=== PATIENT | male | born 1935 | race Hispanic/Latino ===

== ENCOUNTER 2016-09-13 14:46 | Inpatient (IN) | payer MEDICARE, BC ==
--- NOTE | 2016-09-13 20:24 | CP.PCM.HP ---
History of Present Illness - History of Present Illness History of Present Illness: CC: post op rehab after L knee replacement HPI: This is an 81 y/o male with hypothyroidism who presents from [facility] for post-op rehab after L knee replacement on 09/13. Patient has no acute c/c at this time. Patient denies CP, SOB, v, d, dysuria. c/o some mild nausea. Pain is controlled. Patient noted to have fever of 101 on admission. 14 point ROS negative other than HPI MHx: Hypothyroid, depression SHx: Cataracts Allergies: petrolatum, shrimp Medications: as per med list, but patient not taking divalproex or meloxicam actively Family Hx: Reviewed, no relevant findings Social Hx: Lives with family, no EtOH, no tobacco Surrogate: daughter, Tequila Guerrero Present on Admission - Present on Admission Any Indicators Present on Admission: No Meds Allergies/Adverse Reactions: Allergies Allergy/AdvReac Type Severity Reaction Status Date / Time shrimp Allergy ITCHING Verified 09/13/16 21:00 cooton wound dressing Allergy ITCHING Uncoded 09/13/16 21:01 petrulatum Allergy RASH Uncoded 09/13/16 20:58 Physical Exam - Constitutional Appears: No Acute Distress - Head Exam Head Exam: ATRAUMATIC, NORMOCEPHALIC - Eye Exam Eye Exam: EOMI, PERRL - ENT Exam ENT Exam: Mucous Membranes Moist - Neck Exam Neck exam: Positive for: Full Rom - Respiratory Exam Respiratory Exam: Clear to Auscultation Bilateral, NORMAL BREATHING PATTERN - Cardiovascular Exam Cardiovascular Exam: REGULAR RHYTHM, +S1, +S2 - GI/Abdominal Exam GI & Abdominal Exam: Normal Bowel Sounds, Soft - Extremities Exam Additional comments: LLE in dressing with brace - Neurological Exam Neurological exam: Alert, CN II-XII Intact, Oriented x3 - Psychiatric Exam Psychiatric exam: Normal Affect, Normal Mood - Skin Skin Exam: Dry, Warm Assessment & Plan (1) S/P TKR (total knee replacement) Assessment and Plan: 81 y/o male here for rehab s/p L TKR. Also with fever earlier. 1) s/p TKR -Pain mgmt per scale -Rehab PT consult in AM 2) Fever -- likely atelectasis, but r/o infection -BCx, UA/UCx -CXR -Tylenol for fever 3) Hypothyroid -- continue synthroid 4) DVT PPx -- lovenox 30 sq q12h per discharge order from [facility] Status: Acute (2) Hypothyroid Status: Acute (3) Fever Status: Acute (4) DVT prophylaxis Status: Acute
[2016-09-13 20:26] VITALS: BMI 29.5
[2016-09-13] MEDS ORDERED: Oxycodone/Acetaminophen 5/325 mg Tab PO PRN (21:07)
[2016-09-13 22:23] LABS: BASO % 0.2 % (0.0-2.0); EOS % 0.8 % (0.0-4.0); HEMATOCRIT 28.1 % (35.0-51.0); LYMPH # 0.6 K/uL (1.0-4.3); LYMPH % 10.2 % (20.0-40.0); MEAN CELL VOLUME 95.3 fl (80.0-94.0); MEAN CORPUSCULAR HEMOGLOBIN 31.4 pg (27.0-31.0); MEAN PLATELET VOLUME 10.8 fl (7.2-11.7); MONO # 0.7 K/uL (0.0-0.8); MONO % 11.8 % (0.0-10.0); NEUT # 4.7 K/uL (1.8-7.0); RED CELL DISTRIBUTION WIDTH 13.9 % (11.5-14.5); WHITE BLOOD COUNT 6.1 K/uL (4.8-10.8)
[2016-09-13 22:25] LABS: BLOOD UREA NITROGEN 18 mg/dl (9-20); CALCIUM 8.4 mg/dL (8.4-10.2); CARBON DIOXIDE 26 mmol/L (22-30); CHLORIDE 101 mmol/L (98-107); GFR AFRICAN-AMERICAN > 60; GLUCOSE,RANDOM 124 mg/dL (75-110); SODIUM 134 mmol/l (132-148)
[2016-09-13] MEDS: Docusate-Senna 50 mg-8.6 mg Tab PO SCH ×2 (23:50→23:56)
[2016-09-13] MEDS: Enoxaparin 30 mg Syringe SC SCH (23:50)
[2016-09-14 03:41] LABS: RBC URINE < 1 /hpf (0-3); URINE BACTERIA RARE (<OCC); URINE BILIRUBIN NEGATIVE (NEGATIVE); URINE BLOOD SMALL (NEGATIVE); URINE COLOR YELLOW (YELLOW); URINE GLUCOSE (UA) NEG (Normal); URINE KETONE NEGATIVE (NEGATIVE); URINE LEUKOCYTE ESTERASE NEG Leu/uL (Negative); URINE PROTEIN NEGATIVE (NEGATIVE); WBC URINE 1 /hpf (0-5)
[2016-09-14] MEDS: Levothyroxine 25 MCG TAB PO SCH (06:41)
[2016-09-14] MEDS: Pantoprazole 40 mg EC Tab PO SCH (08:28)
[2016-09-14] MEDS: Enoxaparin 30 mg Syringe SC SCH ×2 (08:28→21:04)
[2016-09-14] MEDS ORDERED: Oxycodone/Acetaminophen 5/325 mg Tab PO PRN (11:25)
[2016-09-14] MEDS ORDERED: Alum-Mag Hydrox-Simethicone Susp (30 mL) PO STA (15:34)
[2016-09-14] MEDS: Docusate-Senna 50 mg-8.6 mg Tab PO SCH ×2 (21:04→21:07)
--- NOTE | 2016-09-14 21:35 | CP.PCM.CON ---
History of Present Illness - History of Present Illness History of Present Illness: patient is a 81 year old male admitted to acute rehab from [facility] who had osteoarthritis of the knee and underwent a left knee replacement By Dr. Shields. Review of Systems - Musculoskeletal Musculoskeletal: Abnormal Gait, Arthralgias, Limited Range of Motion, Muscle Weakness Past Patient History - Past Medical History & Family History Past Medical History?: Yes - Past Social History Smoking Status: Never Smoked - PULMONARY Hx Sleep Apnea: Yes (recently, no cpap machine) - ENDOCRINE/METABOLIC Hx Hypothyroidism: Yes - HEMATOLOGICAL/ONCOLOGICAL Hx AIDS: No Hx Human Immunodeficiency Virus (HIV): No - MUSCULOSKELETAL/RHEUMATOLOGICAL Hx Falls: No Hx Osteoarthritis: Yes (> 3 years) - GASTROINTESTINAL Hx Gastritis: Yes - PSYCHIATRIC Hx Substance Use: No - SURGICAL HISTORY Other/Comment: h/o cataract surgery. s/p left TKR 09/11/2016 - ANESTHESIA Hx Anesthesia: Yes Hx Anesthesia Reactions: No Hx Malignant Hyperthermia: No Has any member of the family had a problem w/ anesthesia?: No Meds Allergies/Adverse Reactions: Allergies Allergy/AdvReac Type Severity Reaction Status Date / Time shrimp Allergy ITCHING Verified 09/13/16 21:00 cotton dressings Allergy ITCHING Uncoded 09/13/16 22:42 petrulatum Allergy RASH Uncoded 09/13/16 20:58 - Medications Medications: Current Medications Acetaminophen (Tylenol 325mg Tab) 650 mg PO Q6 PRN PRN Reason: Pain, Mild (1-3) Last Admin: 09/13/16 23:49 Dose: 650 mg Acetaminophen (Tylenol 325mg Tab) 650 mg PO Q6 PRN PRN Reason: Fever >100.4 F Enoxaparin Sodium (Lovenox) 30 mg SC Q12 [facility] PRN Reason: Protocol Last Admin: 09/14/16 21:04 Dose: 30 mg Levothyroxine Sodium (Synthroid) 25 mcg PO DAILY@0700 [facility] Last Admin: 09/14/16 06:41 Dose: 25 mcg Ondansetron HCl (Zofran Tab) 4 mg PO Q6 PRN PRN Reason: Nausea/Vomiting Oxycodone/Acetaminophen (Percocet 5/325 Mg Tab) 1 tab PO Q4 PRN PRN Reason: Pain, moderate (4-7) Stop: 09/16/16 21:08 Oxycodone/Acetaminophen (Percocet 5/325 Mg Tab) 2 tab PO Q4 PRN PRN Reason: Pain, severe (8-10) Stop: 09/17/16 11:26 Pantoprazole Sodium (Protonix Ec Tab) 40 mg PO DAILY [facility] Last Admin: 09/14/16 08:28 Dose: 40 mg Senna/Docusate Sodium (Senokot S 50 Mg-8.6 Mg) 1 tab PO HS [facility] Last Admin: 09/14/16 21:07 Dose: Not Given Physical Exam - Head Exam Head Exam: ATRAUMATIC, NORMAL INSPECTION, NORMOCEPHALIC - Eye Exam Eye Exam: EOMI, Normal appearance Pupil Exam: NORMAL ACCOMODATION - ENT Exam ENT Exam: Mucous Membranes Moist, Normal Exam - Neck Exam Neck exam: Positive for: Normal Inspection - Respiratory Exam Respiratory Exam: Clear to Auscultation Bilateral - Cardiovascular Exam Cardiovascular Exam: REGULAR RHYTHM - GI/Abdominal Exam GI & Abdominal Exam: Normal Bowel Sounds - Rectal Exam Rectal Exam: NORMAL INSPECTION - Extremities Exam Additional comments: left knee with dressing and ricardo wrap. no calf tenderness full strength and Rom of other 3 extremeties at present limited range of motion and strength of left leg - Back Exam Back exam: NORMAL INSPECTION - Neurological Exam Neurological exam: Alert, CN II-XII Intact, Reflexes Normal - Psychiatric Exam Psychiatric exam: Normal Affect - Skin Skin Exam: Normal Color Results - Vital Signs Recent Vital Signs: Last Vital Signs Temp 97.2 F L 09/14/16 20:31 Pulse 90 09/14/16 20:31 Resp 20 09/14/16 20:31 BP 112/66 09/14/16 20:31 Pulse Ox 98 09/14/16 20:31 - Labs Result Diagrams: 09/13/16 21:05 09/13/16 21:05 Labs: Laboratory Results - last 24 hr 09/13/16 09/13/16 09/13/16 03:30 21:05 21:05 WBC 6.1 RBC 2.95 L Hgb 9.3 L Hct 28.1 L MCV 95.3 H MCH 31.4 H MCHC 33.0 RDW 13.9 Plt Count 85 L MPV 10.8 Neut % (Auto) 77.0 H Lymph % (Auto) 10.2 L [place] % (Auto) 11.8 H Eos % (Auto) 0.8 Baso % (Auto) 0.2 Neut # 4.7 Lymph # 0.6 L [place] # 0.7 Eos # 0.0 Baso # 0.0 Sodium 134 Potassium 4.0 Chloride 101 Carbon Dioxide 26 Anion Gap 11 BUN 18 Creatinine 1.1 Est GFR ( Amer) > 60 Est GFR (Non-Af Amer) > 60 Random Glucose 124 H Calcium 8.4 Urine Color Yellow Urine Clarity Clear Urine pH 6.0 Ur Specific [place] 1.012 Urine Protein Negative Urine Glucose (UA) Neg Urine Ketones Negative Urine Blood Small Urine Nitrate Negative Urine Bilirubin Negative Urine Urobilinogen 2.0 Ur Leukocyte Esterase Neg Urine RBC (Auto) < 1 Urine Microscopic WBC 1 Urine Bacteria Rare Assessment & Plan (1) DVT prophylaxis Status: Acute (2) Fever Status: Acute (3) Hypothyroid Status: Acute (4) S/P TKR (total knee replacement) Assessment and Plan: plan for physical and occupational therapy. written overall plan of care. Rom, strengthing, transfers and gait training. Dr Shields instructions to follow for dressing and further treament. Monitor temp and wait for chest xray and UA and labs Plan for Dc Home, [place]olas for modified independent Status: Acute
[2016-09-15] MEDS: Levothyroxine 25 MCG TAB PO SCH (06:07)
[2016-09-15] MEDS: Pantoprazole 40 mg EC Tab PO SCH (08:27)
[2016-09-15] MEDS: Enoxaparin 30 mg Syringe SC SCH (08:27)
--- NOTE | 2016-09-15 09:08 | RAD ---
PROCEDURE: CHEST RADIOGRAPH, 1 VIEW HISTORY: fever COMPARISON: None available. FINDINGS: LUNGS: 5 millimeter nodular density in the left upper lobe.. PLEURA: No pneumothorax or pleural fluid seen. CARDIOVASCULAR: Normal. OSSEOUS STRUCTURES: No significant abnormalities. VISUALIZED UPPER ABDOMEN: Normal. OTHER FINDINGS: None. IMPRESSION: 5 millimeter nodule in the left upper lobe.
--- NOTE | 2016-09-15 09:23 | CP.PCM.PN ---
Subjective - Date & Time of Evaluation Date of Evaluation: 09/15/16 Time of Evaluation: 08:00 - Subjective Subjective: no acute complaints at present Objective - Vital Signs/Intake and Output Vital Signs (last 24 hours): Temp Pulse Resp BP Pulse Ox 98.2 F 78 20 117/63 99 09/15/16 07:54 09/15/16 07:54 09/15/16 07:54 09/15/16 07:54 09/15/16 07:54 - Medications Medications: Current Medications Acetaminophen (Tylenol 325mg Tab) 650 mg PO Q6 PRN PRN Reason: Pain, Mild (1-3) Last Admin: 09/13/16 23:49 Dose: 650 mg Acetaminophen (Tylenol 325mg Tab) 650 mg PO Q6 PRN PRN Reason: Fever >100.4 F Enoxaparin Sodium (Lovenox) 30 mg SC Q12 [facility] PRN Reason: Protocol Last Admin: 09/15/16 08:27 Dose: 30 mg Levothyroxine Sodium (Synthroid) 25 mcg PO DAILY@0700 [facility] Last Admin: 09/15/16 06:07 Dose: 25 mcg Ondansetron HCl (Zofran Tab) 4 mg PO Q6 PRN PRN Reason: Nausea/Vomiting Oxycodone/Acetaminophen (Percocet 5/325 Mg Tab) 1 tab PO Q4 PRN PRN Reason: Pain, moderate (4-7) Stop: 09/16/16 21:08 Oxycodone/Acetaminophen (Percocet 5/325 Mg Tab) 2 tab PO Q4 PRN PRN Reason: Pain, severe (8-10) Stop: 09/17/16 11:26 Pantoprazole Sodium (Protonix Ec Tab) 40 mg PO DAILY [facility] Last Admin: 09/15/16 08:27 Dose: 40 mg Senna/Docusate Sodium (Senokot S 50 Mg-8.6 Mg) 1 tab PO HS [facility] Last Admin: 09/14/16 21:07 Dose: Not Given - Labs Labs: 09/13/16 21:05 09/13/16 21:05 - Head Exam Head Exam: ATRAUMATIC, NORMAL INSPECTION, NORMOCEPHALIC - Eye Exam Pupil Exam: NORMAL ACCOMODATION, PERRL - ENT Exam ENT Exam: Mucous Membranes Moist, Normal Exam - Respiratory Exam Respiratory Exam: NORMAL BREATHING PATTERN - Cardiovascular Exam Cardiovascular Exam: REGULAR RHYTHM - GI/Abdominal Exam GI & Abdominal Exam: Normal Bowel Sounds - Rectal Exam Rectal Exam: NORMAL INSPECTION - Exam External exam: NORMAL EXTERNAL EXAM - Back Exam Back Exam: NORMAL INSPECTION - Neurological Exam Neurological Exam: Alert, Awake Neuro motor strength exam: Left Upper Extremity: 4, Right Upper Extremity: 4, Left Lower Extremity: 3, Right Lower Extremity: 4 - Psychiatric Exam Psychiatric exam: Normal Affect, Normal Mood - Skin Skin Exam: Dry Assessment and Plan (1) DVT prophylaxis Status: Acute (2) Fever Status: Acute (3) Hypothyroid Status: Acute (4) S/P TKR (total knee replacement) Assessment & Plan: plan for acute rehab, physical, occupational and rec therapy Monitor skin incisional internet site designer temp, and vitals Status: Acute Physiatry Overall Plan of Care - Overall Plan of Care Estimated Length of Stay in Weeks: 2 (weeks) Rehab Impairment: Mobility, Gait, Balance, Coordination Etiologic Diagnosis: Hip/Knee Surgery Rehab/Medical Prognosis: Fair - Anticipated Interventions Physical Therapy:: Yes Occupational Therapy:: Yes Recreational Therapy:: Yes - Therapy Goals Bed Mobility: Independent Ambulation: Independent Functional Positional Changes:: Independent - Functional Outcomes Functional Outcomes: good - Discharge Plan Discharge Destination: Home
[2016-09-15] MEDS: Alum-Mag Hydrox-Simethicone Susp (30 mL) PO PRN (18:37)
[2016-09-15] MEDS: Docusate-Senna 50 mg-8.6 mg Tab PO SCH (21:15)
[2016-09-16] MEDS: Levothyroxine 25 MCG TAB PO SCH (06:30)
[2016-09-16 06:52] LABS: HEMATOCRIT 23.8 % (35.0-51.0); MEAN CELL VOLUME 95.4 fl (80.0-94.0); MEAN CORPUSCULAR HEMOGLOBIN 31.8 pg (27.0-31.0); MEAN CORPUSCULAR HGB CONC 33.4 g/dL (33.0-37.0); RED CELL DISTRIBUTION WIDTH 13.9 % (11.5-14.5); WHITE BLOOD COUNT 4.3 K/uL (4.8-10.8)
[2016-09-16] MEDS: Enoxaparin 30 mg Syringe SC SCH (08:56)
[2016-09-16] MEDS: PREVACID 15 MG PO SCH (08:58)
--- NOTE | 2016-09-16 12:11 | CP.PCM.PN ---
Subjective - Date & Time of Evaluation Date of Evaluation: 09/16/16 Time of Evaluation: 17:45 - Subjective Subjective: Patient seen and examined bedside. Pain to right knee is controlled. With fever Tmax 101.5 today , WBC 4.3 Hgb 7.9 Complaining of epigastric discomfort especially after eating . States that has had this problem for almost 25 years , has been diagnosed with gastritis , H. Pylori, gastric ulcer has had EGD and is on Prevacid at home Has chronic constipation with BM every 3 days Complains that does not like food, does not have appetite. Recently diagnosed with Hypyothyroidsm and started on Synthroid Refusing to take tylenol for fever and Venofer for anemia of acute blood loss. Explained top patient need for such treatments Objective - Vital Signs/Intake and Output Vital Signs (last 24 hours): Temp Pulse Resp BP Pulse Ox 98.1 F 76 20 142/72 98 09/16/16 08:43 09/16/16 08:43 09/16/16 08:43 09/16/16 08:43 09/16/16 08:43 - Medications Medications: Current Medications Acetaminophen (Tylenol 325mg Tab) 650 mg PO Q6 PRN PRN Reason: Pain, Mild (1-3) Last Admin: 09/13/16 23:49 Dose: 650 mg Acetaminophen (Tylenol 325mg Tab) 650 mg PO Q6 PRN PRN Reason: Fever >100.4 F Al Hydrox/Mg Hydrox/Simethicone (Maalox Plus 30 Ml) 30 ml PO Q4 PRN PRN Reason: Indigestion / Heartburn Last Admin: 09/15/16 18:37 Dose: 30 ml Enoxaparin Sodium (Lovenox) 30 mg SC DAILY [facility] PRN Reason: Protocol Last Admin: 09/16/16 08:56 Dose: 30 mg Home Med (Patient's Own Medication) 1 unit PO DAILY [facility] Last Admin: 09/16/16 08:58 Dose: 1 unit Levothyroxine Sodium (Synthroid) 25 mcg PO DAILY@0700 [facility] Last Admin: 09/16/16 06:30 Dose: 25 mcg Ondansetron HCl (Zofran Tab) 4 mg PO Q6 PRN PRN Reason: Nausea/Vomiting Oxycodone/Acetaminophen (Percocet 5/325 Mg Tab) 1 tab PO Q4 PRN PRN Reason: Pain, moderate (4-7) Stop: 09/16/16 21:08 Oxycodone/Acetaminophen (Percocet 5/325 Mg Tab) 2 tab PO Q4 PRN PRN Reason: Pain, severe (8-10) Stop: 09/17/16 11:26 Senna/Docusate Sodium (Senokot S 50 Mg-8.6 Mg) 1 tab PO HS [facility] Last Admin: 09/15/16 21:15 Dose: Not Given - Labs Labs: 09/16/16 06:15 09/13/16 21:05 - Constitutional Appears: Non-toxic, No Acute Distress - Head Exam Head Exam: ATRAUMATIC, NORMAL INSPECTION, NORMOCEPHALIC - Eye Exam Eye Exam: EOMI, Normal appearance, PERRL Pupil Exam: NORMAL ACCOMODATION - ENT Exam ENT Exam: Mucous Membranes Moist, Normal Exam - Neck Exam Neck Exam: Full ROM, Normal Inspection - Respiratory Exam Respiratory Exam: Clear to Ausculation Bilateral, NORMAL BREATHING PATTERN. absent: Rales, Rhonchi, Wheezes - Cardiovascular Exam Cardiovascular Exam: REGULAR RHYTHM, RRR, +S1, +S2. absent: JVD - GI/Abdominal Exam GI & Abdominal Exam: Soft, Normal Bowel Sounds. absent: Distended, Guarding, Tenderness, Rebound - Rectal Exam Rectal Exam: Deferred - Extremities Exam Additional comments: right knee surgical incision heaking well with surrounding erythema Edema to RLE 2 + pulses intact no calf tenderness - Back Exam Back Exam: NORMAL INSPECTION - Neurological Exam Neurological Exam: Alert, Awake, CN II-XII Intact, Oriented x3 - Psychiatric Exam Psychiatric exam: Normal Affect, Normal Mood - Skin Skin Exam: Dry, Normal Color, Warm Assessment and Plan - Assessment and Plan (Free Text) Assessment: 81 y/o male with PMH OA s/p right TKR , hypothyroidism , chronic constipation, historuy of depression in the past , chronic gastritis , history H.Pylori and gastric ulcer ,sent to acute rehab for physical therapy after TKR surgery 09/[address] Shields Complaining of epigastric discomfort and has been having fever 1.Osteoarthritis S/P right TKR (total knee replacement) Continue PT/OT DVt prophylaxis withlovenox 30 mg as per ortho Ortho follow up with Dr. Shields pain management. Patient refusing narcotics. 2.Post op fever unclear etiology Blood and urine cultures sent 09/14 with no growth CXR showed no infiltrate, left high diaphragm UStart incentive spiroimetryu Venous doppler of RLE stat Tylenol for fever 3.Hypothyroid continue synthroid 4. Acute blood loss anemia Hgb dropped tyo 7.9 today Start Venofer IV Repeat CBC in AM 5. Gastritis on Prevacid and Maalox 6. Chronic constipation Colace BID 7. DVT PPx lovenox 30
[2016-09-16] MEDS: Alum-Mag Hydrox-Simethicone Susp (30 mL) PO PRN (12:42)
[2016-09-16] MEDS: Docusate-Senna 50 mg-8.6 mg Tab PO SCH (21:47)
[2016-09-17] MEDS: Levothyroxine 25 MCG TAB PO SCH (06:46)
[2016-09-17 07:54] LABS: HEMATOCRIT 21.7 % (35.0-51.0); MEAN CELL VOLUME 94.1 fl (80.0-94.0); MEAN CORPUSCULAR HEMOGLOBIN 32.8 pg (27.0-31.0); MEAN CORPUSCULAR HGB CONC 34.9 g/dL (33.0-37.0); RED CELL DISTRIBUTION WIDTH 13.7 % (11.5-14.5); WHITE BLOOD COUNT 4.3 K/uL (4.8-10.8)
[2016-09-17] MEDS: Enoxaparin 30 mg Syringe SC SCH (08:42)
[2016-09-17] MEDS: PREVACID 15 MG PO SCH (08:42)
--- NOTE | 2016-09-17 11:11 | RAD ---
PROCEDURE: CHEST RADIOGRAPH, 1 VIEW HISTORY: post op fever COMPARISON: 09/14/2016 FINDINGS: LUNGS: Clear. PLEURA: No pneumothorax or pleural fluid seen. CARDIOVASCULAR: Normal. OSSEOUS STRUCTURES: No significant abnormalities. VISUALIZED UPPER ABDOMEN: Normal. OTHER FINDINGS: None. IMPRESSION: No active disease.
--- NOTE | 2016-09-17 13:15 | US ---
PROCEDURE: Right lower extremity venous duplex Doppler. HISTORY: r/o DVT COMPARISON: None available. TECHNIQUE: Common femoral, superficial femoral, popliteal and posterior tibial veins were evaluated. Flow was assessed with color Doppler, compressibility, assessment of phasic flow and augmentation response. FINDINGS: COMMON FEMORAL VEIN: Unremarkable. SUPERFICIAL FEMORAL VEIN: Unremarkable. POPLITEAL VEIN: Unremarkable. POSTERIOR TIBIAL VEIN: Unremarkable. OTHER FINDINGS: None. IMPRESSION: No evidence of deep venous thrombosis in the right lower extremity.
--- NOTE | 2016-09-17 13:23 | US ---
PROCEDURE: Duplex ultrasound of the right lower extremity arteries. HISTORY: r/o PAD COMPARISON: None available. TECHNIQUE: Grayscale and duplex Doppler evaluation of the right common femoral, superficial femoral, popliteal, posterior tibial and dorsalis pedis arteries was performed.. FINDINGS: COMMON FEMORAL ARTERY: Patent. Maximal flow velocity of 87.2 cm/s. Triphasic pattern SUPERFICIAL FEMORAL ARTERY:Patent. Maximal flow velocity of 115.4 cm/s. Triphasic pattern POPLITEAL ARTERY:Patent. Maximal flow velocity of 57.4 cm/s. Triphasic pattern POSTERIOR TIBIAL ARTERY: Patent. Maximal flow velocity of 91.0 cm/s. Biphasic pattern DORSALIS PEDIS ARTERY: Patent. Maximal flow velocity of 32.2 cm/s. Biphasic pattern OTHER FINDINGS: None. IMPRESSION: Normal Duplex Doppler of the right lower extremity artery from the groin to the knee. Runoff below the right knee is biphasic in and all vessels which remain patent but exhibit mild arterial disease nevertheless.
[2016-09-17] MEDS: Docusate-Senna 50 mg-8.6 mg Tab PO SCH (22:19)
[2016-09-18] MEDS: Levothyroxine 25 MCG TAB PO SCH (06:48)
[2016-09-18 07:31] LABS: BASO % 0.7 % (0.0-2.0); EOS # 0.2 K/uL (0.0-0.7); EOS % 5.7 % (0.0-4.0); HEMATOCRIT 22.1 % (35.0-51.0); LYMPH # 0.5 K/uL (1.0-4.3); LYMPH % 12.4 % (20.0-40.0); MEAN CELL VOLUME 95.6 fl (80.0-94.0); MEAN CORPUSCULAR HEMOGLOBIN 32.1 pg (27.0-31.0); MEAN CORPUSCULAR HGB CONC 33.6 g/dL (33.0-37.0); MEAN PLATELET VOLUME 9.7 fl (7.2-11.7); MONO # 0.6 K/uL (0.0-0.8); MONO % 14.7 % (0.0-10.0); NEUT # 2.8 K/uL (1.8-7.0); NEUT % 66.5 % (50.0-75.0); NRBC % 0.1 % (0.0-0.0); RED CELL DISTRIBUTION WIDTH 13.8 % (11.5-14.5); WHITE BLOOD COUNT 4.2 K/uL (4.8-10.8)
[2016-09-18] MEDS: PREVACID 15 MG PO SCH (08:54)
--- NOTE | 2016-09-18 12:32 | PSY.TMCNF ---
Nursing - Vital Signs Vital Signs (Last 8 hours): Vital Signs 09/18/16 09/18/16 08:28 09:00 Temperature 97.9 F 97.9 F Pulse Rate 90 90 Respiratory 20 20 Rate Blood Pressure 125/70 125/70 O2 Sat by Pulse 98 Oximetry Pain: 0 - Precautions: Precautions: Fall Prevention - Medications/Other Issues Comment: Hgb 7.4 anemic - Consults Comment: Dr. Shields, Dr. Banks - Skin Incision Site: Left knee Dressing Status: Clean, Dry, Intact Incision: Healing Well Incision Line Treatment: Dry dressing. - Toileting Toileting: Modified Independent - Bladder Management Bladder Pattern: Normal Voiding Method: Toilet Bladder Management: Modified Independent - Bowel Management Bowel Pattern: Constipated Bowel Management: Modified Independent - Transfers Transfers: Modified Independent - ADL's ADL's: Modified Independent - Pain Management Comments: Denies pain - Patient/Family Teaching Comments: Safety - Goals/Time Frame Comments: As per IPOC Physical Therapy - Transfers Sit to Stand: Supervision, Verbal Cues - Ambulation Level of Assistance: Supervision, Verbal Cues, Contact Guard Distance (ft.): 100 Assistive Devices: Rolling Walker - Stair Negotiation Stairs: Level of Assistance: Not Tested - Standing Balance Static Stand: Contact Guard Assist Dynamic Stand: Minimal Assistance, Moderate Assistance - Pain Management Techniques: Ice, Position Change, Elevation - Insight/Carryover Insight/Carryover: Fair - Patient/Family Education Comment: -ongoing for adls, functional transfers/mobility, but additional training to improve carryover. -educated on energy conervation/work simplification strategies. -Pt's daughter needs reassurance re: pt's progress and need to complete task by lesli when possible - Assessment/Plan Assessment: Pt is engaged in independent leisure tasks throughout his stay on unit. Pt's main barrier to participation is limited arousal, fatigue, nausea, and pain. Pt prefers to rest or watch television during his free time. Pt's mood is stable-positive and has supportive daughter. Pt would benefit from participating in recreation therapy sessions if agreeable to distract pt from pain and improve arousal level. - Goals Timeframe: 1 week Goals: -CAREGIVER ED: Caregiver to be I assisting/cueing pt with daily living tasks prn. -LOWER BODY ADLS: Supervision/setup. -TOILETING: Mod I. - FUNCTIONAL TRANSFERS bed<->, commode, chaiir and other surfaces with Mod I with RW. -UPPER BODY ADLS: I AFTER SETUP. -GROOMING: standing @ sink with MoD I. - RETRIEVE/TRANSPORT ITEMS: Mod O - Provider Therapist: Freya Cope PT License Number: [id number] Occupational Therapy - Arousal/Attention/Orientation Patient Orientation: Person, Place, Time, Appropriate to Age, Appropriate to Situation - ADL/IADL Self Feeding: Set-up Help Grooming: Set-up Help Dressing-Upper Extremity: Supervision, Set-up Help Dressing-Lower Extremity: Moderate Assistance - Sitting Balance Static Sitting: Supervision Dynamic Sitting: Reaches within base of support - Transfers Wheelchair to Bed Transfers: Verbal Cues, Set-up Help, Contact Guard, Minimal Assistance Toilet Transfers: Supervision, Set-up Help Comment: chair transfers: Supervision with RW - Upper Extremity Status Right Upper Extremity Comment: AROM is WNLS Left Upper Extremity Comment: AROM is WNLS - Pain Alleviating Techniques: Ice, Position Change, Elevation - Insight/Carryover Insight/Carryover: Fair - Patient/Family Education Comment: -ongoing for adls, functional transfers/mobility, but additional training to improve carryover. -educated on energy conervation/work simplification strategies. -Pt's daughter needs reassurance re: pt's progress and need to complete task by lesli when possible - Assessment/Plan Assessment: Pt is engaged in independent leisure tasks throughout his stay on unit. Pt's main barrier to participation is limited arousal, fatigue, nausea, and pain. Pt prefers to rest or watch television during his free time. Pt's mood is stable-positive and has supportive daughter. Pt would benefit from participating in recreation therapy sessions if agreeable to distract pt from pain and improve arousal level. - Goals Timeframe: 1 week Goals: -CAREGIVER ED: Caregiver to be I assisting/cueing pt with daily living tasks prn. -LOWER BODY ADLS: Supervision/setup. -TOILETING: Mod I. - FUNCTIONAL TRANSFERS bed<->, commode, chaiir and other surfaces with Mod I with RW. -UPPER BODY ADLS: I AFTER SETUP. -GROOMING: standing @ sink with MoD I. - RETRIEVE/TRANSPORT ITEMS: Mod O - Provider Therapist: Lluvia Montoya, OTR/L License Number: [id number] Speech Therapy - Plan Assessment: Pt is engaged in independent leisure tasks throughout his stay on unit. Pt's main barrier to participation is limited arousal, fatigue, nausea, and pain. Pt prefers to rest or watch television during his free time. Pt's mood is stable-positive and has supportive daughter. Pt would benefit from participating in recreation therapy sessions if agreeable to distract pt from pain and improve arousal level. Recreational Therapy - Participation Participation: Monitors His/Her Own Leisure Time - Attendance Attendance: Daily - Activities Leisure Activities: Television - Socialization Level of Socialization: Initiates/interacts freely with care givers and peer - Diversional Time Diversional Time: television - Assessment Assessment/Plan: Pt is engaged in independent leisure tasks throughout his stay on unit. Pt's main barrier to participation is limited arousal, fatigue, nausea , and pain. Pt prefers to rest or watch television during his free time. Pt's mood is stable-positive and has supportive daughter. Pt would benefit from participating in recreation therapy sessions if agreeable to distract pt from pain and improve arousal level. Problems Currently Limiting Participation: pain, nausea, decrease leisure awareness level Goals and Time Frame: Pt will be encouraged to participate in 1:1 and group recreation therapy sessions 3-5x week to improve arousal level, attention to task, and leisure awareness level. - Provider Therapist: Audelia Domingo, [facility] #[id number] Nutrition - Current Diet Current Diet/ Supplement/ Feedings: regular diet ensure plus 8 ounces 2 per day( 700 kcal and 26 grams of protein) - Appetite Percent Meal Consumed: 50-74% - Comments Comments: Safety - Assessment/Goals/Time Frame Assessment/Goals/Time Frame: Hgb 7.4 anemic - Provider Provider: Stacia Solomon RD Case Management - Discharge Plan Discharge Plan: Home with significant other/family Rehabilitation Plan - Treatment Plan Treatment Plan: Physical Therapy, Occupational Therapy - Recommendation Recommendation: Physical Therapy, Occupational Therapy, Dietary, Patient/Family Education - Discharge Plan Discharge to: Home (Dc fridayio wound PT)
--- NOTE | 2016-09-18 18:01 | CP.PCM.PN ---
Subjective - Date & Time of Evaluation Date of Evaluation: 09/18/16 Time of Evaluation: 17:58 - Subjective Subjective: patient states he is tolerating physical therapy well HGB 7.4, refuses transfusion until he speaks with his surgeon awaiting decision, HD STABLE, ASYMPTOMATIC. Objective - Vital Signs/Intake and Output Vital Signs (last 24 hours): Temp Pulse Resp BP Pulse Ox 97.9 F 90 20 125/70 98 09/18/16 09:00 09/18/16 09:00 09/18/16 09:00 09/18/16 09:00 09/18/16 08:28 - Medications Medications: Current Medications Acetaminophen (Tylenol 325mg Tab) 650 mg PO Q6 PRN PRN Reason: Pain, Mild (1-3) Last Admin: 09/13/16 23:49 Dose: 650 mg Acetaminophen (Tylenol 325mg Tab) 650 mg PO Q6 PRN PRN Reason: Fever >100.4 F Al Hydrox/Mg Hydrox/Simethicone (Maalox Plus 30 Ml) 30 ml PO Q4 PRN PRN Reason: Indigestion / Heartburn Last Admin: 09/16/16 12:42 Dose: 30 ml Enoxaparin Sodium (Lovenox) 30 mg SC DAILY [facility] PRN Reason: Protocol Last Admin: 09/17/16 08:42 Dose: 30 mg Home Med (Patient's Own Medication) 1 unit PO DAILY [facility] Last Admin: 09/18/16 08:54 Dose: 1 unit Iron Sucrose 100 mg/ Sodium (Chloride) 105 mls @ 105 mls/hr IVPB 1999 [facility] Stop: 09/21/16 20:01 Last Admin: 09/17/16 20:22 Dose: 105 mls/hr Levothyroxine Sodium (Synthroid) 25 mcg PO DAILY@0700 [facility] Last Admin: 09/18/16 06:48 Dose: 25 mcg Ondansetron HCl (Zofran Tab) 4 mg PO Q6 PRN PRN Reason: Nausea/Vomiting Senna/Docusate Sodium (Senokot S 50 Mg-8.6 Mg) 1 tab PO [facility] Last Admin: 09/17/16 22:19 Dose: Not Given - Labs Labs: 09/18/16 05:40 09/13/16 21:05 - Constitutional Appears: Non-toxic, No Acute Distress - Head Exam Head Exam: ATRAUMATIC, NORMAL INSPECTION, NORMOCEPHALIC - Eye Exam Eye Exam: EOMI, Normal appearance, PERRL Pupil Exam: NORMAL ACCOMODATION, PERRL - ENT Exam ENT Exam: Mucous Membranes Moist, Normal Exam - Neck Exam Neck Exam: Full ROM, Normal Inspection. absent: Lymphadenopathy - Respiratory Exam Respiratory Exam: Clear to Ausculation Bilateral, NORMAL BREATHING PATTERN - Cardiovascular Exam Cardiovascular Exam: REGULAR RHYTHM, +S1, +S2. absent: Murmur - GI/Abdominal Exam GI & Abdominal Exam: Soft, Normal Bowel Sounds. absent: Tenderness - Extremities Exam Extremities Exam: Normal Capillary Refill. absent: Calf Tenderness - Back Exam Back Exam: absent: CVA tenderness (L), CVA tenderness (R) - Neurological Exam Neurological Exam: Alert, Awake, Oriented x3 - Psychiatric Exam Psychiatric exam: Normal Affect, Normal Mood - Skin Skin Exam: Dry, Intact, Normal Color, Warm Assessment and Plan - Assessment and Plan (Free Text) Plan: 81 y/o male with PMH OA s/p right TKR , hypothyroidism , chronic constipation, historuy of depression in the past , chronic gastritis , history H.Pylori and gastric ulcer ,sent to acute rehab for physical therapy after TKR surgery 09/[address] Shields Complaining of epigastric discomfort and has been having fever 1.Osteoarthritis S/P right TKR (total knee replacement) Continue PT/OT DVt prophylaxis withlovenox 30 mg as per ortho Ortho follow up with Dr. Shields pain management. Patient refusing narcotics. 2.Post op fever unclear etiology Blood and urine cultures sent 09/14 with no growth CXR showed no infiltrate, left high diaphragm UStart incentive spiroimetryu Venous doppler of RLE stat Tylenol for fever 3.Hypothyroid continue synthroid 4. Acute blood loss anemia Hgb dropped tyo 7.4 today Start Venofer IV Repeat CBC in AM PATIENT WILL MAKE DECISION REGARDIN GBLOOD TRANSFUSION AFTER SPEAKING WITH DR. SHIELDS. WILL LIKELY GET 2 UNITS TONIGHT. 5. Gastritis on Prevacid and Maalox 6. Chronic constipation Colace BID 7. DVT PPx lovenox 30
[2016-09-18] MEDS: Sodium Chloride 0.9% 1,000 ML IV SCH (19:04)
[2016-09-18] MEDS: Docusate-Senna 50 mg-8.6 mg Tab PO SCH (21:39)
[2016-09-19 06:16] LABS: HEMATOCRIT 22.7 % (35.0-51.0); MEAN CELL VOLUME 96.2 fl (80.0-94.0); MEAN CORPUSCULAR HEMOGLOBIN 31.9 pg (27.0-31.0); MEAN CORPUSCULAR HGB CONC 33.1 g/dL (33.0-37.0); RED CELL DISTRIBUTION WIDTH 14.1 % (11.5-14.5); WHITE BLOOD COUNT 5.3 K/uL (4.8-10.8)
[2016-09-19] MEDS: Levothyroxine 25 MCG TAB PO SCH (06:40)
[2016-09-19] MEDS: PREVACID 15 MG PO SCH (08:29)
[2016-09-19] MEDS: Sodium Chloride 0.9% 1,000 ML IV SCH (15:15)
--- NOTE | 2016-09-19 16:22 | US ---
HISTORY: r/o DVT . PRIORS: None. FINDINGS: 2-D, color and duplex Doppler analysis of the lower extremity venous circulation using routine protocol from the femoral veins through the popliteal veins. Venous compressibility: Normal. Flow and augmentation patterns: Normal. Visualized veins upper third of calf: Normal. Aguirre cyst: None. IMPRESSION: No sonographic or Doppler evidence for DVT in left lower extremity.
--- NOTE | 2016-09-19 20:46 | CP.PCM.PN ---
Subjective - Date & Time of Evaluation Date of Evaluation: 09/18/16 Time of Evaluation: 09:00 - Subjective Subjective: patient with no acute complaints of knee or leg pain Objective - Vital Signs/Intake and Output Vital Signs (last 24 hours): Temp Pulse Resp BP Pulse Ox 97.7 F 90 20 126/69 97 09/19/16 08:20 09/19/16 08:20 09/19/16 08:20 09/19/16 08:20 09/19/16 08:20 - Medications Medications: Current Medications Acetaminophen (Tylenol 325mg Tab) 650 mg PO Q6 PRN PRN Reason: Pain, Mild (1-3) Last Admin: 09/13/16 23:49 Dose: 650 mg Acetaminophen (Tylenol 325mg Tab) 650 mg PO Q6 PRN PRN Reason: Fever >100.4 F Al Hydrox/Mg Hydrox/Simethicone (Maalox Plus 30 Ml) 30 ml PO Q4 PRN PRN Reason: Indigestion / Heartburn Last Admin: 09/16/16 12:42 Dose: 30 ml Enoxaparin Sodium (Lovenox) 30 mg SC DAILY [facility] PRN Reason: Protocol Last Admin: 09/17/16 08:42 Dose: 30 mg Home Med (Patient's Own Medication) 1 unit PO DAILY [facility] Last Admin: 09/19/16 08:29 Dose: 1 unit Iron Sucrose 100 mg/ Sodium (Chloride) 105 mls @ 105 mls/hr IVPB 1999 [facility] Stop: 09/21/16 20:01 Last Admin: 09/18/16 20:24 Dose: 105 mls/hr Levothyroxine Sodium (Synthroid) 25 mcg PO DAILY@0700 [facility] Last Admin: 09/19/16 06:40 Dose: 25 mcg Ondansetron HCl (Zofran Tab) 4 mg PO Q6 PRN PRN Reason: Nausea/Vomiting Senna/Docusate Sodium (Senokot S 50 Mg-8.6 Mg) 1 tab PO [facility] Last Admin: 09/18/16 21:39 Dose: Not Given - Labs Labs: 09/19/16 06:00 09/13/16 21:05 - Head Exam Head Exam: ATRAUMATIC - Eye Exam Eye Exam: EOMI, Normal appearance Pupil Exam: NORMAL ACCOMODATION - ENT Exam ENT Exam: Mucous Membranes Moist, Normal Exam - Neck Exam Neck Exam: Normal Inspection - Respiratory Exam Respiratory Exam: NORMAL BREATHING PATTERN - Cardiovascular Exam Cardiovascular Exam: REGULAR RHYTHM - GI/Abdominal Exam GI & Abdominal Exam: Normal Bowel Sounds - Rectal Exam Rectal Exam: NORMAL INSPECTION - Exam External exam: NORMAL EXTERNAL EXAM - Extremities Exam Extremities Exam: Normal Inspection - Back Exam Back Exam: NORMAL INSPECTION - Neurological Exam Neurological Exam: Alert, Awake Neuro motor strength exam: Left Upper Extremity: 4, Right Upper Extremity: 4, Left Lower Extremity: 3, Right Lower Extremity: 4 - Psychiatric Exam Psychiatric exam: Normal Affect, Normal Mood Assessment and Plan (1) DVT prophylaxis Status: Acute (2) Fever Status: Acute (3) Hypothyroid Status: Acute (4) S/P TKR (total knee replacement) Assessment & Plan: status post team conference, and discussion with daughter at length, discussed need for blood transfusion discussed Dc date , equipment need and therapy needs of patient Status: Acute
[2016-09-19] MEDS: Docusate-Senna 50 mg-8.6 mg Tab PO SCH (21:33)
[2016-09-20] MEDS: Levothyroxine 25 MCG TAB PO SCH (06:44)
[2016-09-20 07:54] LABS: HEMATOCRIT 25.2 % (35.0-51.0); MEAN CELL VOLUME 98.6 fl (80.0-94.0); MEAN CORPUSCULAR HEMOGLOBIN 32.4 pg (27.0-31.0); MEAN CORPUSCULAR HGB CONC 32.9 g/dL (33.0-37.0); RED CELL DISTRIBUTION WIDTH 14.8 % (11.5-14.5); WHITE BLOOD COUNT 8.1 K/uL (4.8-10.8)
[2016-09-20] MEDS: PREVACID 15 MG PO SCH (08:13)
--- NOTE | 2016-09-20 10:46 | CP.PCM.PN ---
Subjective - Date & Time of Evaluation Date of Evaluation: 09/20/16 Time of Evaluation: 10:00 - Subjective Subjective: no acute complaints of leg discomfort Objective - Vital Signs/Intake and Output Vital Signs (last 24 hours): Temp Pulse Resp BP Pulse Ox 97.5 F L 91 H 20 123/65 96 09/20/16 07:58 09/20/16 07:58 09/20/16 07:58 09/20/16 07:58 09/20/16 07:58 - Medications Medications: Current Medications Acetaminophen (Tylenol 325mg Tab) 650 mg PO Q6 PRN PRN Reason: Pain, Mild (1-3) Last Admin: 09/13/16 23:49 Dose: 650 mg Acetaminophen (Tylenol 325mg Tab) 650 mg PO Q6 PRN PRN Reason: Fever >100.4 F Al Hydrox/Mg Hydrox/Simethicone (Maalox Plus 30 Ml) 30 ml PO Q4 PRN PRN Reason: Indigestion / Heartburn Last Admin: 09/16/16 12:42 Dose: 30 ml Enoxaparin Sodium (Lovenox) 30 mg SC DAILY [facility] PRN Reason: Protocol Last Admin: 09/17/16 08:42 Dose: 30 mg Home Med (Patient's Own Medication) 1 unit PO DAILY [facility] Last Admin: 09/20/16 08:13 Dose: 1 unit Iron Sucrose 100 mg/ Sodium (Chloride) 105 mls @ 105 mls/hr IVPB 1999 [facility] Stop: 09/21/16 20:01 Last Admin: 09/19/16 21:31 Dose: 105 mls/hr Levothyroxine Sodium (Synthroid) 25 mcg PO DAILY@0700 [facility] Last Admin: 09/20/16 06:44 Dose: 25 mcg Ondansetron HCl (Zofran Tab) 4 mg PO Q6 PRN PRN Reason: Nausea/Vomiting Senna/Docusate Sodium (Senokot S 50 Mg-8.6 Mg) 1 tab PO [facility] Last Admin: 09/19/16 21:33 Dose: Not Given - Labs Labs: 09/20/16 07:00 09/13/16 21:05 - Head Exam Head Exam: ATRAUMATIC, NORMAL INSPECTION, NORMOCEPHALIC - Eye Exam Eye Exam: EOMI, Normal appearance, PERRL Pupil Exam: NORMAL ACCOMODATION - ENT Exam ENT Exam: Mucous Membranes Moist, Normal Exam - Neck Exam Neck Exam: Normal Inspection - Respiratory Exam Respiratory Exam: NORMAL BREATHING PATTERN - Cardiovascular Exam Cardiovascular Exam: REGULAR RHYTHM - GI/Abdominal Exam GI & Abdominal Exam: Normal Bowel Sounds - Rectal Exam Rectal Exam: NORMAL INSPECTION - Exam External exam: NORMAL EXTERNAL EXAM - Extremities Exam Extremities Exam: Normal Capillary Refill - Back Exam Back Exam: NORMAL INSPECTION - Neurological Exam Neurological Exam: Alert, Awake Neuro motor strength exam: Left Upper Extremity: 4, Right Upper Extremity: 4, Left Lower Extremity: 3, Right Lower Extremity: 4 - Psychiatric Exam Psychiatric exam: Normal Affect, Normal Mood - Skin Skin Exam: Dry, Intact Assessment and Plan (1) DVT prophylaxis Status: Acute (2) Fever Status: Acute (3) Hypothyroid Status: Acute (4) S/P TKR (total knee replacement) Assessment & Plan: plan for pt, Ot H and H is better refused transfusion. doppler negative Status: Acute Physiatry Overall Plan of Care - Overall Plan of Care Estimated Length of Stay in Weeks: 2 (weeks) Rehab Impairment: Mobility, Gait, Coordination Etiologic Diagnosis: Hip/Knee Surgery Rehab/Medical Prognosis: Good - Anticipated Interventions Physical Therapy:: Yes Occupational Therapy:: Yes Recreational Therapy:: Yes - Therapy Goals Bed Mobility: Independent Ambulation: Independent Functional Positional Changes:: Independent - Discharge Plan Identification of Barriers to Discharge: Cognition, Other Discharge Destination: Home
--- NOTE | 2016-09-20 11:38 | CP.PCM.PN ---
Subjective - Date & Time of Evaluation Date of Evaluation: 09/19/16 Time of Evaluation: 17:00 - Subjective Subjective: no acute complaints of discomfort , but still with some leg pain, refusing the blood transfusion Objective - Vital Signs/Intake and Output Vital Signs (last 24 hours): Temp Pulse Resp BP Pulse Ox 97.5 F L 91 H 20 123/65 96 09/20/16 07:58 09/20/16 07:58 09/20/16 07:58 09/20/16 07:58 09/20/16 07:58 - Medications Medications: Current Medications Acetaminophen (Tylenol 325mg Tab) 650 mg PO Q6 PRN PRN Reason: Pain, Mild (1-3) Last Admin: 09/13/16 23:49 Dose: 650 mg Acetaminophen (Tylenol 325mg Tab) 650 mg PO Q6 PRN PRN Reason: Fever >100.4 F Al Hydrox/Mg Hydrox/Simethicone (Maalox Plus 30 Ml) 30 ml PO Q4 PRN PRN Reason: Indigestion / Heartburn Last Admin: 09/16/16 12:42 Dose: 30 ml Enoxaparin Sodium (Lovenox) 30 mg SC DAILY [facility] PRN Reason: Protocol Last Admin: 09/17/16 08:42 Dose: 30 mg Home Med (Patient's Own Medication) 1 unit PO DAILY [facility] Last Admin: 09/20/16 08:13 Dose: 1 unit Iron Sucrose 100 mg/ Sodium (Chloride) 105 mls @ 105 mls/hr IVPB 2000 [facility] Stop: 09/21/16 20:01 Last Admin: 09/19/16 21:31 Dose: 105 mls/hr Levothyroxine Sodium (Synthroid) 25 mcg PO DAILY@0700 [facility] Last Admin: 09/20/16 06:44 Dose: 25 mcg Ondansetron HCl (Zofran Tab) 4 mg PO Q6 PRN PRN Reason: Nausea/Vomiting Senna/Docusate Sodium (Senokot S 50 Mg-8.6 Mg) 1 tab PO HS [facility] Last Admin: 09/19/16 21:33 Dose: Not Given - Labs Labs: 09/20/16 07:00 09/13/16 21:05 - Head Exam Head Exam: ATRAUMATIC, NORMAL INSPECTION, NORMOCEPHALIC - Eye Exam Eye Exam: EOMI, Normal appearance, PERRL Pupil Exam: NORMAL ACCOMODATION - ENT Exam ENT Exam: Mucous Membranes Moist, Normal Exam - Neck Exam Neck Exam: Normal Inspection - Respiratory Exam Respiratory Exam: NORMAL BREATHING PATTERN - Cardiovascular Exam Cardiovascular Exam: REGULAR RHYTHM - GI/Abdominal Exam GI & Abdominal Exam: Normal Bowel Sounds - Rectal Exam Rectal Exam: NORMAL INSPECTION - Exam External exam: NORMAL EXTERNAL EXAM - Extremities Exam Extremities Exam: Normal Capillary Refill, Normal Inspection - Back Exam Back Exam: NORMAL INSPECTION - Neurological Exam Neurological Exam: Alert, Awake Neuro motor strength exam: Left Upper Extremity: 4, Right Upper Extremity: 4, Left Lower Extremity: 3, Right Lower Extremity: 3 - Psychiatric Exam Psychiatric exam: Normal Affect, Normal Mood - Skin Skin Exam: Dry, Intact Assessment and Plan (1) DVT prophylaxis Status: Acute (2) Fever Status: Acute (3) Hypothyroid Status: Acute (4) S/P TKR (total knee replacement) Assessment & Plan: consider doppler for leg, monior H ewelina plan for Pt, Ot and rec therapy follow up as per Dr Redmond Status: Acute
--- NOTE | 2016-09-20 14:33 | CP.PCM.PN ---
Subjective - Date & Time of Evaluation Date of Evaluation: 09/20/16 Time of Evaluation: 14:32 - Subjective Subjective: patient doing well no other complaints at this time Hgb 8.3 today improvd refused blood transfusion HD stable Objective - Vital Signs/Intake and Output Vital Signs (last 24 hours): Temp Pulse Resp BP Pulse Ox 97.5 F L 91 H 20 123/65 96 09/20/16 07:58 09/20/16 07:58 09/20/16 07:58 09/20/16 07:58 09/20/16 07:58 - Medications Medications: Current Medications Acetaminophen (Tylenol 325mg Tab) 650 mg PO Q6 PRN PRN Reason: Pain, Mild (1-3) Last Admin: 09/13/16 23:49 Dose: 650 mg Acetaminophen (Tylenol 325mg Tab) 650 mg PO Q6 PRN PRN Reason: Fever >100.4 F Al Hydrox/Mg Hydrox/Simethicone (Maalox Plus 30 Ml) 30 ml PO Q4 PRN PRN Reason: Indigestion / Heartburn Last Admin: 09/16/16 12:42 Dose: 30 ml Enoxaparin Sodium (Lovenox) 30 mg SC DAILY [facility] PRN Reason: Protocol Last Admin: 09/17/16 08:42 Dose: 30 mg Home Med (Patient's Own Medication) 1 unit PO DAILY [facility] Last Admin: 09/20/16 08:13 Dose: 1 unit Iron Sucrose 100 mg/ Sodium (Chloride) 105 mls @ 105 mls/hr IVPB 2000 [facility] Stop: 09/21/16 20:01 Last Admin: 09/19/16 21:31 Dose: 105 mls/hr Levothyroxine Sodium (Synthroid) 25 mcg PO DAILY@0700 [facility] Last Admin: 09/20/16 06:44 Dose: 25 mcg Ondansetron HCl (Zofran Tab) 4 mg PO Q6 PRN PRN Reason: Nausea/Vomiting Senna/Docusate Sodium (Senokot S 50 Mg-8.6 Mg) 1 tab PO HS [facility] Last Admin: 09/19/16 21:33 Dose: Not Given - Labs Labs: 09/20/16 07:00 09/13/16 21:05 - Constitutional Appears: Non-toxic, No Acute Distress - Head Exam Head Exam: ATRAUMATIC, NORMOCEPHALIC - Eye Exam Eye Exam: EOMI, Normal appearance, PERRL - ENT Exam ENT Exam: Mucous Membranes Moist, Normal Exam - Respiratory Exam Respiratory Exam: Clear to Ausculation Bilateral, NORMAL BREATHING PATTERN - Cardiovascular Exam Cardiovascular Exam: REGULAR RHYTHM, +S1, +S2. absent: Murmur - GI/Abdominal Exam GI & Abdominal Exam: Soft, Normal Bowel Sounds. absent: Tenderness - Extremities Exam Extremities Exam: Normal Capillary Refill. absent: Calf Tenderness - Back Exam Back Exam: absent: CVA tenderness (L), CVA tenderness (R) - Neurological Exam Neurological Exam: Alert, Awake, CN II-XII Intact, Normal Gait, Oriented x3 - Psychiatric Exam Psychiatric exam: Normal Affect, Normal Mood - Skin Skin Exam: Dry, Intact, Normal Color, Warm Assessment and Plan - Assessment and Plan (Free Text) Plan: 81 y/o male with PMH OA s/p right TKR , hypothyroidism , chronic constipation, historuy of depression in the past , chronic gastritis , history H.Pylori and gastric ulcer ,sent to acute rehab for physical therapy after TKR surgery 09/[address] Shields Complaining of epigastric discomfort and has been having fever 1.Osteoarthritis S/P right TKR (total knee replacement) Continue PT/OT DVt prophylaxis withlovenox 30 mg as per ortho Ortho follow up with Dr. Shields pain management. Patient refusing narcotics. 2.Post op fever unclear etiology Blood and urine cultures sent 09/14 with no growth CXR showed no infiltrate, left high diaphragm UStart incentive spiroimetryu Venous doppler of RLE stat Tylenol for fever 3.Hypothyroid continue synthroid 4. Acute blood loss anemia Hgb dropped tyo 7.4, 8.3 HGB TODAY. ON Venofer IV Repeat CBC in AM REFUSED BLOOD TRANSFUSION 5. Gastritis on Prevacid and Maalox 6. Chronic constipation Colace BID 7. DVT PPx lovenox 30
[2016-09-20] MEDS: Docusate-Senna 50 mg-8.6 mg Tab PO SCH (21:16)
[2016-09-21] MEDS: Levothyroxine 25 MCG TAB PO SCH (07:14)
[2016-09-21] MEDS: PREVACID 15 MG PO SCH (08:43)
[2016-09-21] MEDS: Docusate-Senna 50 mg-8.6 mg Tab PO SCH (21:11)
[2016-09-22] MEDS: Levothyroxine 25 MCG TAB PO SCH (06:20)
[2016-09-22] MEDS: PREVACID 15 MG PO SCH (09:00)
--- NOTE | 2016-09-22 21:05 | CP.PCM.PN ---
Subjective - Date & Time of Evaluation Date of Evaluation: 09/21/16 Time of Evaluation: 12:00 - Subjective Subjective: no acute complaints at present, less leg pain Objective - Vital Signs/Intake and Output Vital Signs (last 24 hours): Temp Pulse Resp BP Pulse Ox 98.4 F 93 H 20 134/74 100 09/22/16 09:49 09/22/16 20:00 09/22/16 20:00 09/22/16 20:00 09/22/16 20:00 - Medications Medications: Current Medications Acetaminophen (Tylenol 325mg Tab) 650 mg PO Q6 PRN PRN Reason: Pain, Mild (1-3) Last Admin: 09/13/16 23:49 Dose: 650 mg Acetaminophen (Tylenol 325mg Tab) 650 mg PO Q6 PRN PRN Reason: Fever >100.4 F Al Hydrox/Mg Hydrox/Simethicone (Maalox Plus 30 Ml) 30 ml PO Q4 PRN PRN Reason: Indigestion / Heartburn Last Admin: 09/16/16 12:42 Dose: 30 ml Enoxaparin Sodium (Lovenox) 30 mg SC DAILY [facility] PRN Reason: Protocol Last Admin: 09/17/16 08:42 Dose: 30 mg Home Med (Patient's Own Medication) 1 unit PO DAILY [facility] Last Admin: 09/22/16 09:00 Dose: 1 unit Levothyroxine Sodium (Synthroid) 25 mcg PO DAILY@0700 [facility] Last Admin: 09/22/16 06:20 Dose: 25 mcg Ondansetron HCl (Zofran Tab) 4 mg PO Q6 PRN PRN Reason: Nausea/Vomiting Senna/Docusate Sodium (Senokot S 50 Mg-8.6 Mg) 1 tab PO [facility] Last Admin: 09/21/16 21:11 Dose: Not Given - Labs Labs: 09/20/16 07:00 09/13/16 21:05 - Head Exam Head Exam: ATRAUMATIC, NORMAL INSPECTION, NORMOCEPHALIC - Eye Exam Eye Exam: EOMI, Normal appearance Pupil Exam: NORMAL ACCOMODATION, PERRL - ENT Exam ENT Exam: Mucous Membranes Moist, Normal Exam - Neck Exam Neck Exam: Normal Inspection - Respiratory Exam Respiratory Exam: Clear to Ausculation Bilateral, NORMAL BREATHING PATTERN - Cardiovascular Exam Cardiovascular Exam: REGULAR RHYTHM - GI/Abdominal Exam GI & Abdominal Exam: Normal Bowel Sounds - Rectal Exam Rectal Exam: NORMAL INSPECTION - Exam External exam: NORMAL EXTERNAL EXAM - Extremities Exam Extremities Exam: Normal Capillary Refill, Normal Inspection - Back Exam Back Exam: NORMAL INSPECTION - Neurological Exam Neurological Exam: Alert - Psychiatric Exam Psychiatric exam: Normal Affect, Normal Mood - Skin Skin Exam: Dry, Normal Color - Additional Findings Additional findings: left leg knee weakness Assessment and Plan (1) DVT prophylaxis Status: Acute (2) Fever Status: Acute (3) Hypothyroid Status: Acute (4) S/P TKR (total knee replacement) Assessment & Plan: physical, occupational, occupational therapy continue to monitor skin and vitals Status: Acute
[2016-09-22] MEDS: Docusate-Senna 50 mg-8.6 mg Tab PO SCH (21:28)
[2016-09-23] MEDS: Levothyroxine 25 MCG TAB PO SCH (06:16)
[2016-09-23] MEDS: PREVACID 15 MG PO SCH (08:21)
[2016-09-23 12:49] LABS: HEMATOCRIT 27.1 % (35.0-51.0); MEAN CELL VOLUME 95.7 fl (80.0-94.0); MEAN CORPUSCULAR HEMOGLOBIN 32.8 pg (27.0-31.0); MEAN CORPUSCULAR HGB CONC 34.3 g/dL (33.0-37.0); RED CELL DISTRIBUTION WIDTH 14.5 % (11.5-14.5); WHITE BLOOD COUNT 10.1 K/uL (4.8-10.8)
[2016-09-23 20:32] VITALS: O2SAT 98
[2016-09-23] MEDS: Docusate-Senna 50 mg-8.6 mg Tab PO SCH (21:34)
[2016-09-24] MEDS: Levothyroxine 25 MCG TAB PO SCH (07:17)
[2016-09-24 07:45] VITALS: BP 125/95; PULSE 80; RESP 20; TEMP 97.9
[2016-09-24] MEDS: PREVACID 15 MG PO SCH (08:18)
--- NOTE | 2016-09-24 09:48 | CP.PCM.PN ---
Subjective - Date & Time of Evaluation Date of Evaluation: 09/23/16 Time of Evaluation: 10:00 - Subjective Subjective: patient sitting in chair, no complaints of any knee pain Objective - Vital Signs/Intake and Output Vital Signs (last 24 hours): Temp Pulse Resp BP Pulse Ox 97.9 F 80 20 125/95 H 98 09/24/16 07:00 09/24/16 07:00 09/24/16 07:00 09/24/16 07:00 09/23/16 20:32 - Medications Medications: Current Medications Acetaminophen (Tylenol 325mg Tab) 650 mg PO Q6 PRN PRN Reason: Pain, Mild (1-3) Last Admin: 09/24/16 08:17 Dose: 650 mg Acetaminophen (Tylenol 325mg Tab) 650 mg PO Q6 PRN PRN Reason: Fever >100.4 F Al Hydrox/Mg Hydrox/Simethicone (Maalox Plus 30 Ml) 30 ml PO Q4 PRN PRN Reason: Indigestion / Heartburn Last Admin: 09/16/16 12:42 Dose: 30 ml Enoxaparin Sodium (Lovenox) 30 mg SC DAILY [facility] PRN Reason: Protocol Last Admin: 09/17/16 08:42 Dose: 30 mg Home Med (Patient's Own Medication) 1 unit PO DAILY [facility] Last Admin: 09/24/16 08:18 Dose: 1 unit Levothyroxine Sodium (Synthroid) 25 mcg PO DAILY@0700 [facility] Last Admin: 09/24/16 07:17 Dose: 25 mcg Ondansetron HCl (Zofran Tab) 4 mg PO Q6 PRN PRN Reason: Nausea/Vomiting Senna/Docusate Sodium (Senokot S 50 Mg-8.6 Mg) 1 tab PO HS [facility] Last Admin: 09/23/16 21:34 Dose: Not Given - Labs Labs: 09/23/16 12:20 09/13/16 21:05 - Head Exam Head Exam: ATRAUMATIC, NORMAL INSPECTION, NORMOCEPHALIC - Eye Exam Eye Exam: EOMI, Normal appearance Pupil Exam: NORMAL ACCOMODATION - ENT Exam ENT Exam: Mucous Membranes Moist - Respiratory Exam Respiratory Exam: Clear to Ausculation Bilateral, NORMAL BREATHING PATTERN - Cardiovascular Exam Cardiovascular Exam: REGULAR RHYTHM - GI/Abdominal Exam GI & Abdominal Exam: Soft - Rectal Exam Rectal Exam: NORMAL INSPECTION - Exam External exam: NORMAL EXTERNAL EXAM - Extremities Exam Extremities Exam: Normal Capillary Refill, Normal Inspection - Back Exam Back Exam: NORMAL INSPECTION - Neurological Exam Neurological Exam: Alert, Awake, CN II-XII Intact Neuro motor strength exam: Left Upper Extremity: 4, Right Upper Extremity: 4, Left Lower Extremity: 3, Right Lower Extremity: 3 - Psychiatric Exam Psychiatric exam: Normal Affect - Skin Skin Exam: Normal Color Assessment and Plan (1) DVT prophylaxis Status: Acute (2) Fever Status: Acute (3) Hypothyroid Status: Acute (4) S/P TKR (total knee replacement) Assessment & Plan: plan for physical, occupational, rec therapy at present improve ROM of th eknee disscussed patient with Dr Shields, daughter. written prescription for equipment and outpatient PT Status: Acute
--- NOTE | 2016-09-24 12:52 | CP.PCM.DIS ---
Provider - Provider Date of Admission: 09/13/16 22:07 Attending physician: Lucien Cintron MD Primary care physician: Rojelio Brown MD Consults: Dr. Yusuf Condon Time Spent in preparation of Discharge (in minutes): 40 Hospital Course - Lab Results Lab Results: Micro Results 09/13/16 09:15 Blood-Venous Blood Culture - Final NO GROWTH AFTER 5 DAYS 09/13/16 09:15 Blood-Venous Gram Stain - Final TEST NOT PERFORMED 09/13/16 09:10 Blood-Venous Blood Culture - Final NO GROWTH AFTER 5 DAYS 09/13/16 09:10 Blood-Venous Gram Stain - Final TEST NOT PERFORMED 09/14/16 03:30 Urine,Clean Catch Urine Culture - Final No Growth (<1,000 CFU/ML) Most Recent Lab Values WBC 10.1 K/uL (4.8-10.8) 09/23/16 12:20 RBC 2.84 Mil/uL (4.40-5.90) L 09/23/16 12:20 Hgb 9.3 g/dL (12.0-18.0) L 09/23/16 12:20 Hct 27.1 % (35.0-51.0) L 09/23/16 12:20 MCV 95.7 fl (80.0-94.0) H D 09/23/16 12:20 MCH 32.8 pg (27.0-31.0) H 09/23/16 12:20 MCHC 34.3 g/dL (33.0-37.0) 09/23/16 12:20 RDW 14.5 % (11.5-14.5) 09/23/16 12:20 Plt Count 415 K/uL (130-400) H D 09/23/16 12:20 MPV 9.7 fl (7.2-11.7) 09/18/16 05:40 Neut % (Auto) 66.5 % (50.0-75.0) 09/18/16 05:40 Lymph % (Auto) 12.4 % (20.0-40.0) L 09/18/16 05:40 [place] % (Auto) 14.7 % (0.0-10.0) H 09/18/16 05:40 Eos % (Auto) 5.7 % (0.0-4.0) H 09/18/16 05:40 Baso % (Auto) 0.7 % (0.0-2.0) 09/18/16 05:40 Neut # 2.8 K/uL (1.8-7.0) 09/18/16 05:40 Lymph # 0.5 K/uL (1.0-4.3) L 09/18/16 05:40 [place] # 0.6 K/uL (0.0-0.8) 09/18/16 05:40 Eos # 0.2 K/uL (0.0-0.7) 09/18/16 05:40 Baso # 0.0 K/uL (0.0-0.2) 09/18/16 05:40 Sodium 134 mmol/l (132-148) 09/13/16 21:05 Potassium 4.0 MMOL/L (3.6-5.0) 09/13/16 21:05 Chloride 101 mmol/L (98-107) 09/13/16 21:05 Carbon Dioxide 26 mmol/L (22-30) 09/13/16 21:05 Anion Gap 11 (10-20) 09/13/16 21:05 BUN 18 mg/dl (9-20) 09/13/16 21:05 Creatinine 1.1 mg/dL (0.8-1.5) 09/13/16 21:05 Est GFR ( Amer) > 60 09/13/16 21:05 Est GFR (Non-Af Amer) > 60 09/13/16 21:05 Random Glucose 124 mg/dL (75-110) H 09/13/16 21:05 Calcium 8.4 mg/dL (8.4-10.2) 09/13/16 21:05 Urine Color Yellow (YELLOW) 09/13/16 03:30 Urine Clarity Clear (Clear) 09/13/16 03:30 Urine pH 6.0 (5.0-8.0) 09/13/16 03:30 Ur Specific [place] 1.012 (1.003-1.030) 09/13/16 03:30 Urine Protein Negative mg/dL (NEGATIVE) 09/13/16 03:30 Urine Glucose (UA) Neg mg/dL (Normal) 09/13/16 03:30 Urine Ketones Negative mg/dL (NEGATIVE) 09/13/16 03:30 Urine Blood Small (NEGATIVE) 09/13/16 03:30 Urine Nitrate Negative (NEGATIVE) 09/13/16 03:30 Urine Bilirubin Negative (NEGATIVE) 09/13/16 03:30 Urine Urobilinogen 2.0 mg/dL (0.2-1.0) 09/13/16 03:30 Ur Leukocyte Esterase Neg Aura/uL (Negative) 09/13/16 03:30 Urine RBC (Auto) < 1 /hpf (0-3) 09/13/16 03:30 Urine Microscopic WBC 1 /hpf (0-5) 09/13/16 03:30 Urine Bacteria Rare (<OCC) 09/13/16 03:30 Blood Type A POSITIVE 09/18/16 12:35 Blood Type Confirm A POSITIVE 09/18/16 14:11 Antibody Screen Negative 09/18/16 12:35 Crossmatch See Detail 09/18/16 12:35 BBK History Checked No verified bt 09/18/16 12:35 - Hospital Course Hospital Course: 81 year old male who is S/P Left TKR at [facility] by Dr. Shields on . He was transferred to [facility] for PT/OT and he has been cleared by them for discharge to home. Currently upon FULL ROS: NO chest pain, palpitations. NO SOB/Cough/Wheezing NO dysphagia/odynophagia NO abdominal pain NO n/v/d/c (last bowel movement was yesterday 09/23/16 and it was normal) NO lightheadedness/dizziness, NO RUIZ, NO new changes in vision/hearing NO paresthesias NO Left Knee Pain Right ear fullness Exam: HEENT: NCA, EOMI, PERRLA, NO pharyngeal erythema/exudate, NO cervical/ submandibular/supraclavicular lymphadenopathy, Moist Oral Mucosa and Nasal Turbinates, NO thyromegaly, Bilateral TM are intact/nonerythematous/nonbulging/ no exudate/good light reflex Cardio: NS1 and NS2, NO M/R/G Resp: CTA B/L, NO R/R/W GI: BSx4, Soft, NT, ND, NO HSM, NO guarding/rebound tenderness Ext: Pulses are strong and equal, Capillary Refill is 2 seconds, Left Leg and Knee are have mild nonpitting edema when compared to the Right, Left Knee Surgical Site with Surgical [place] without signs of cellulitis and there is no would dehiscense and is dry, Left medial knee abrasion (from where daughter quickly ripped bandage off on 09/23/16) without signs of cellulitis Neuro: CN II through XII are grossly intact Blood Culture 09/13/16 has been negative at 5 days Fever of 100.2 at 8:32 PM on 09/23/16 but he has been fever free this morning Urine Culture 09/14/16 showed NO growth He was on Lovenox for anticoagulation but this was stopped by Ortho secondary to drop in HgB. Nurse Angela has contacted Dr. Shields's office to ask her what anticoagulation (if any) she would like patient to be on for DVT Prophylaxis, and we are awaiting a call back concerning this issue as of writing of this discharge summary. Assessments: 1). S/P Left TKR 2). Hypothyroidism Discharge instructions were explained to patient and daughter who were present: 1). Follow up with Orthopedic Surgeon Dr. Shields at 2:45 PM on 09/26/16. Office is located at [address] [place] [address], [place] [address]. Office Number is 2). Follow up with [facility] at 12:30 PM on 09/26/16. Their office number will be provided to you by the nurse prior to your discharge. 3). Apply triple antibiotic ointment (you may purchase this from your pharmacy without a prescription) to the left knee abrasion 2x/day and cover with non- adhesive dressing which has been provided to by the Nurse prior to your discharge. 4). Continue your home medications that you stated you had enough of: Levothyroxine 25 mcg, 1 tablet by mouth 1x/day Prevacid 15 mg, 1 tablet by mouth 1x/day 5). Please make sure to follow up with PMD Dr. Brown in the next 7 to 10 days. 6). Please take care. Marvin Earl D.O. Discharge Exam - Head Exam Head Exam: ATRAUMATIC, NORMAL INSPECTION, NORMOCEPHALIC Discharge Plan - Follow Up Plan Condition: GOOD Disposition: HOME/ ROUTINE Instructions: Acetaminophen (By mouth), Levothyroxine (By mouth), Lansoprazole (By mouth), Precautions after Total Joint Replacement Surgery (DC), Knee Replacement (DC) Additional Instructions: 1. Cleanse incision line with alcohol. Cover with dry dressing and paper tape daily. 2. Do not wet incision line until cleared by Dr. Shields. Referrals: Rojelio Brown [Primary Care Provider] -
--- NOTE | 2016-10-23 15:32 | DS ---
Discharge facility was home. Patient discharged at supervision level to get outpatient physical therapy and to follow up with Dr. Shields as well further followup for staple removal with Dr. Shields. The patient given regular walker and commode. The patient received recreational therapy with group and one-to-one therapy sessions for physical therapy. The patient's mobility: Transfer, modified independent; ambulation 200 feet, rolling walker, modified independent; stairs, supervision. The patient also received occupational therapy as well. ADLs, modified independent. Upper body dressing set up. Lower body bathing, min assist, verbal cues. Functional mobility, modified independent. The patient discharged home and to follow with medical physician in 1 to 2 weeks. Yusuf Alegre MD
== END 2016-09-24 14:15 | disposition home or self-care (01) | DRG 560 ==
PROC: F08Z4FZ Home Management Treatment using Assistive, Adaptive, Supportive or Protective Equipment (ICD-10-PCS; principal; 2016-09-13)
PROC: F07M6FZ Therapeutic Exercise Treatment of Musculoskeletal System - Whole Body using Assistive, Adaptive, Supportive or Protective Equipment (ICD-10-PCS; 2016-09-13)
DX: Z47.1 Aftercare following joint replacement surgery (principal); D62 Acute posthemorrhagic anemia; R50.82 Postprocedural fever; J98.11 Atelectasis; Z96.652 Presence of left artificial knee joint; E03.9 Hypothyroidism, unspecified; F32.9 Major depressive disorder, single episode, unspecified; G47.30 Sleep apnea, unspecified; H26.9 Unspecified cataract; K29.50 Unspecified chronic gastritis without bleeding; K59.09 Other constipation; M17.12 Unilateral primary osteoarthritis, left knee; Z87.11 Personal history of peptic ulcer disease; M19.90 Unspecified osteoarthritis, unspecified site